=== PATIENT | male | born 1985 | race Caucasian/White ===

== ENCOUNTER 2016-11-12 08:51 | Emergency (ER) | payer OTHER ==
[2016-11-12 10:19] LABS: RED BLOOD COUNT 5.15 M/UL (4.20-5.50); WHITE BLOOD COUNT 7.8 K/UL (4.5-11.0)
[2016-11-12 10:33] LABS: BUN/CREATININE RATIO 11 (0-10)
== END 2016-11-12 12:38 | disposition home or self-care (01) ==
LOC: ER1 08:51
PROVIDERS: Physician Assistant
DX: E11.65 Type 2 diabetes mellitus with hyperglycemia (principal); F17.210 Nicotine dependence, cigarettes, uncomplicated
CPT/HCPCS: 36415; 80053; 81001; 82962; 85025; 96360; 96372; 99284; J1815

== ENCOUNTER → 2016-11-17 | Outpatient (CLI) | payer OTHER | LOC: LAB 11:56 | DX: E11.65 Type 2 diabetes mellitus with hyperglycemia (principal) | CPT/HCPCS: 36415; 80061; 84439; 84443 ==